=== PATIENT | male | born 1990 | race Caucasian/White ===

== ENCOUNTER 2024-06-03 14:50 | Emergency (ER) | payer BC ==
[2024-06-03 15:08] VITALS: BP 126/80; PULSE 70; RESP 18; BMI 29.0
[2024-06-03 15:13] VITALS: TEMP 98.6
== END 2024-06-03 17:11 | disposition home or self-care (01) ==
LOC: JERFT 14:50
DX: G44.309 Post-traumatic headache, unspecified, not intractable (principal); W22.8XXA Striking against or struck by other objects, initial encounter
CPT/HCPCS: 70450-TC; 99284-25